=== PATIENT | male | born 1995 | race Caucasian/White ===

== ENCOUNTER 2017-01-24 17:53 | Emergency (ER) | payer OTHER ==
[~2017-01-24] VITALS: Ht 182.9 cm; Wt 88.5 kg
[~2017-01-24 17:53] MED LIST: AUGMENTIN 875 M1 TAB PO; FLONASE120 SPRAY/ NAS; MOTRIN 400MG (400 MG PO; MOTRIN800 MG PO; MUCINEX ER600 MG PO; ZYRTEC ALLERGY10 MG PO
[2017-01-24 18:08] VITALS: BP 129/77
[2017-01-24] MEDS ORDERED: ALLEGRA ALLERG180 M1 PO (18:58)
[2017-01-24] MEDS ORDERED: ADVIL200 M1 PO (18:58)
[2017-01-24] MEDS ORDERED: AMOXICILLIN500 M3 PO (19:39)
--- NOTE | 2017-01-24 19:40 | ED EAR COMPLAINT ---
History of Present Illness General Chief Complaint: Ear Complaints Stated Complaint: EAR PAIN X 2WKS, SAW PCP NOT BETTER Source: patient Exam Limitations: no limitations Vital Signs & Intake/Output Vital Signs & Intake/Output Vital Signs Date Time Temp Pulse Resp B/P Pulse O2 O2 Flow FiO2 Ox Delivery Rate 01/24 1808 98.0 69 16 129/77 98 Room Air Allergies Coded Allergies: No Known Allergies (01/24/17) Reconcile Medications Amoxicillin 500 MG TABLET 1 TAB PO TID otitis media Fexofenadine HCl (Priti Allergy) 180 MG TABLET 1 TAB PO PRN ALLERGIES ( Reported) Ibuprofen (Advil) 200 MG CAPSULE 2 CAP PO PRN PAIN (Reported) Triage Note: PT HAVING RIGHT EAR ACHE FOR TWO WEEKS, PT UNABLE TO SEE HIS PCP. Triage Nurses Notes Reviewed? yes Onset: Abrupt Duration: day(s):, constant, continues in ED Timing: recent history Severity: moderate, severe No Modifying Factors: none HPI: 21-year-old male comes into emergency room for further evaluation of right ear pain. Symptoms going on for the past 2 weeks. Patient saw his primary care doctor. Patient was told to take Advil. Patient also reports some mild pain to the right side of his throat. Denies any other associated symptoms. Past History Travel History Traveled to [place] past 21 day No Medical History Any Pertinent Medical History? see below for history Neurological: NONE EENT: STREP THROAT Cardiovascular: NONE Respiratory: NONE Gastrointestinal: NONE Hepatic: NONE Renal: NONE Musculoskeletal: fracture, R SHOULDER DISLOCATIONS L HUMERUS FX R TORRES SPLINTS Psychiatric: anxiety Endocrine: NONE Blood Disorders: NONE Cancer(s): NONE RUBBER TURNER/Reproductive: NONE Surgical History Surgical History: N Psychosocial History What is your primary language [place] Tobacco Use: Never used ETOH Use: occasional use Illicit Drug Use: denies illicit drug use Family History Hx Contributory? No Review of Systems Review of Systems Constitutional: Reports: no symptoms. EENTM: Reports: see HPI. Respiratory: Reports: no symptoms. Cardiovascular: Reports: no symptoms. GI: Reports: no symptoms. Genitourinary: Reports: no symptoms. Musculoskeletal: Reports: no symptoms. Skin: Reports: no symptoms. Neurological/Psychological: Reports: no symptoms. Hematologic/Endocrine: Reports: no symptoms. Immunologic/Allergic: Reports: no symptoms. All Other Systems: Reviewed and Negative Physical Exam Physical Exam General Appearance: well developed/nourished, mild distress Head: atraumatic Eyes: Bilateral: normal appearance. Ears: Right: other (serous otitis). Nose: normal inspection Mouth/Throat: normal mouth inspection, pharynx normal Neck: normal inspection Cardiovascular/Respiratory: no respiratory distress Back: normal inspection Neurologic/Psych: awake, alert, oriented x 3, normal mood/affect Skin: intact, normal color, warm/dry Progress Differential Diagnoses I considered the following diagnoses in my evaluation of the patient: Otitis media, otitis externa, mastoiditis, foreign body, Plan of Care: 01/24/2017 8:35:35 PM Patient clinically looks well. Nontoxic-appearing. In no apparent distress. Patient treated for a serous otitis. Initial ED EKG: none Departure Departure Disposition: HOME OR SELF CARE Condition: Stable Clinical Impression Primary Impression: Serous otitis media Referrals: JONO LOPEZ,LES Clark (PCP/Family) Additional Instructions: Take amoxicillin as prescribed. Follow-up with your primary care doctor. Return if any concerns worsening symptoms. Please go over all results of today's visit with your primary care doctor. Contact your primary care doctor to let them know you were here in the emergency room. There may be nonspecific findings which may not be related to your visit today here in the emergency room but may require further evaluation and chronic monitoring by your primary care doctor. If you had a laceration today the chance of foreign body always remains. You should follow-up with your primary care doctor for recheck in 3-5 days for a wound check. If you had an x-ray done there is a chance that a fracture could have been missed on initial read and you should follow-up with your primary care doctor for repeat x-rays if symptoms persist. If your blood pressure was elevated here in the emergency room please have rechecked by her primary care doctor within the next 48 hours by your primary care doctor. If you were prescribed a narcotic here in the emergency room or any type of controlled substances you're not allowed to drive while taking this medication or operate any type of heavy machinery. Narcotics can make you feel lightheaded dizziness nausea and can cause constipation. You may need to pharmacy picking technician a stool softener. Thank you for choosing [facility] emergency room. Please return to the emergency room immediately if you have any other concerns worsening of symptoms. Departure Forms: Customer Survey General Discharge Information Prescriptions: Current Visit Scripts Amoxicillin 1 TAB PO TID #30 TAB
== END 2017-01-24 19:48 ==
LOC: ERH 17:53
DX: H65.91 Unspecified nonsuppurative otitis media, right ear (principal)